=== PATIENT | female | born 1995 | race African-American/Black ===

== ENCOUNTER 2016-12-13 15:56 | Inpatient (IN) ==
[2016-12-13] MEDS ORDERED: ONDANSETRON 4 MG/2 ML VIAL IV STA (17:52)
[2016-12-13] MEDS ORDERED: HYDROmorphone 2 MG/1 ML VIAL IV STA (17:52)
[2016-12-13] MEDS ORDERED: SODIUM CHLORIDE 0.9% 1,000 ML IV STA (17:52)
[2016-12-13] MEDS ORDERED: HYDROmorphone 2 MG/1 ML VIAL ONE (17:59)
[2016-12-13] MEDS ORDERED: ONDANSETRON 4 MG/2 ML VIAL ONE (17:59)
[2016-12-13 18:01] LABS: Basophils # 0.1 10*3/uL (0.0-0.2); Basophils % 0.3 % (0.0-0.8); Hematocrit 40.9 VOL% (35.7-47.0); Hemoglobin 13.6 GM/DL (12.0-16.0); Immature Granulocytes % 1.5 %; Immature Granulocytes Absolute 0.45 #; Lymphocytes % 3.3 % (21.3-54.2); Mean Corpuscular HGB Conc 33.3 GM/DL (32-36); Mean Corpuscular Hemoglobin 28 PG (27-34); Mean Corpuscular Volume 84.5 FL (87-102); Mean Platelet Volume 11.7 FL (9.6-12.0); Monocytes # 2.4 10*3/uL (0.11-0.8); Monocytes % 7.8 % (1.7-12.7); Neutrophils # 26.6 10*3/uL (1.4-7.4); Neutrophils % 87.1 % (38.7-73.9); Platelet Count 222 T/CUMM (130-400); Red Blood Count 4.84 MC/CUMM (3.8-5.5); Red Cell Distribution Width 13.8 % (9.3-17.3); White Blood Count 30.6 T/CUMM (4-12)
[2016-12-13] MEDS ORDERED: PIPERACILLIN/TAZOBACTAM 3,375 MG in SODIUM CHLORIDE 0.9% 100 ML IV STA (18:12)
[2016-12-13 18:15] LABS: Apearance,Urine Slightly Hazy (Clear); Bacteria,Urine Occasional /HPF (Few); Blood, Urine Moderate mg/dL (Negative); Glucose,Urine (UA) Negative (Negative); Ketones,Urine 5 mg/dL (Negative); Mucus,Urine Few /LPF (Occasional); Nitrite,Urine Negative (Negative); Protein,Urine 100 MG/DL; RBC,Urine 9 /HPF (0-4); Squamous Epithelial Cell,Urine Occasional /HPF (0-10); Urine Color Amber (Yellow); Urine Specific Gravity 1.023 (1.001-1.035); WBC,Urine 3 /HPF (0-6)
[2016-12-13 18:16] LABS: Bilirubin,Urine Small mg/dL (Negative)
[2016-12-13 18:25] LABS: Albumin 3.1 G/DL (3.4-5.0); Bilirubin,Total 5.5 MG/DL (0.2-1.0); Calcium 8.7 MG/DL (8.5-10.1); Osmolality,Calculated 268.4 MOS/KG (273-304); Potassium 3.6 MMOL/L (3.5-5.1); Total Protein 7.8 G/DL (6.4-8.3)
[2016-12-13] MEDS ORDERED: PIPERACILLIN/TAZOBACTAM 3,375 MG VIAL IV ONE (18:29)
[2016-12-13 18:33] LABS: Amylase 15 U/L (25-115); Magnesium 2.3 MG/DL (1.8-2.4); Troponin I Only < 0.015 NG/ML (0.00-0.045)
[2016-12-13 18:36] LABS: Band Neutrophils 12 % (0-10); Lymphocytes 1 % (20-55); Segmented Neutrophils 79 % (50-85)
[2016-12-13 18:37] LABS: Platelet Estimate Adequate
[2016-12-13 18:38] LABS: Lactic Acid 1.8 MMOL/L (0.4-2.0)
[2016-12-13 18:38] LABS: Total Cells Counted 100
[2016-12-13] MEDS ORDERED: ALUMINUM/MAGNES/SIMETH MAX STR 30 ML UDCUP PO PRN (19:34)
[2016-12-13] MEDS ORDERED: ACETAMINOPHEN 325 MG TABLET PO PRN (19:34)
[2016-12-13] MEDS: DEXTROSE 5% NACL 0.9% 1,000 ML IV SCH (21:26)
[2016-12-13] MEDS: metroNIDAZOLE INJ 500 MG in PREMIX 1 EACH IV SCH (21:27)
[2016-12-13] MEDS: AZTREONAM 1,000 MG in SODIUM CHLORIDE 0.9% 50 ML IV SCH (21:28)
[2016-12-13] MEDS: HYDROmorphone 2 MG/1 ML VIAL IV PRN (21:31)
[2016-12-14] MEDS: HYDROmorphone 2 MG/1 ML VIAL IV PRN ×4 (00:23→20:22)
[2016-12-14] MEDS: DEXTROSE 5% NACL 0.9% 1,000 ML IV SCH ×5 (01:30→21:26)
[2016-12-14] MEDS: metroNIDAZOLE INJ 500 MG in PREMIX 1 EACH IV SCH ×4 (02:57→20:21)
[2016-12-14] MEDS: AZTREONAM 1,000 MG in SODIUM CHLORIDE 0.9% 50 ML IV SCH ×3 (04:35→21:25)
[2016-12-14] MEDS: PIPERACILLIN/TAZOBACTAM 3,375 MG in SODIUM CHLORIDE 0.9% 100 ML IV SCH ×3 (06:06→22:39)
[2016-12-14] MEDS ORDERED: BUPIVACAINE 0.25% 50 ML VIAL ONE (06:42)
[2016-12-14] MEDS ORDERED: LIDOCAINE 1%/EPI INJ 20 ML VIAL ONE (06:42)
[2016-12-14] MEDS ORDERED: TISSUE ADHESIVE 1 EACH APPLICATOR TOP ONE (06:42)
[2016-12-14] MEDS ORDERED: NEOSTIGMINE 10 MG/10 ML VIAL ONE (06:55)
[2016-12-14] MEDS ORDERED: LIDOCAINE 1% 5 ML VIAL ONE (06:55)
[2016-12-14] MEDS ORDERED: GLYCOPYRROLATE 0.4 MG/2 ML VIAL ONE (06:55)
[2016-12-14] MEDS ORDERED: PROPOFOL 200 MG/20 ML VIAL IV ONE (06:55)
[2016-12-14] MEDS ORDERED: DEXAMETHASONE 10 MG/1 ML VIAL ONE (06:55)
[2016-12-14] MEDS ORDERED: ONDANSETRON 4 MG/2 ML VIAL ONE (06:55)
[2016-12-14] MEDS ORDERED: PHENYLEPHRINE 1 MG/10 ML SYRINGE IV ONE (06:55)
[2016-12-14] MEDS ORDERED: ROCURONIUM 100 MG/10 ML VIAL IV ONE (06:55)
[2016-12-14 09:43] LABS: Apearance,Urine CLEAR (Clear); Bilirubin,Urine Small mg/dL (Negative); Blood, Urine Small mg/dL (Negative); Glucose,Urine (UA) Negative (Negative); Ketones,Urine Negative (Negative); Mucus,Urine Occasional /LPF (Occasional); Nitrite,Urine Negative (Negative); Protein,Urine 100 MG/DL; RBC,Urine 6 /HPF (0-4); Squamous Epithelial Cell,Urine Occasional /HPF (0-10); Urine Color Amber (Yellow); Urine Specific Gravity 1.019 (1.001-1.035); WBC,Urine 1 /HPF (0-6)
[2016-12-14] MEDS ORDERED: ACETAMINOPHEN 1,000 MG/100 ML VIAL IV ONE (10:06)
[2016-12-14] MEDS ORDERED: fentaNYL 100 MCG/2 ML VIAL ONE (10:06)
[2016-12-14] MEDS ORDERED: SEVOFLURANE 1 UNIT/15 MINUTE INH ONE (10:06)
[2016-12-14] MEDS ORDERED: MIDAZOLAM 2 MG/2 ML VIAL ONE (10:06)
[2016-12-14] MEDS ORDERED: LACTATED RINGERS 1,000 ML IV ONE (10:06)
[2016-12-14] MEDS ORDERED: ONDANSETRON 4 MG/2 ML VIAL IV PRN (10:15)
[2016-12-14] MEDS ORDERED: HYDROmorphone 2 MG/1 ML VIAL IV PRN (10:15)
[2016-12-14] MEDS ORDERED: LACTATED RINGERS 1,000 ML IV SCH (10:30)
[2016-12-14] MEDS: PANTOPRAZOLE 40 MG VIAL IV SCH (10:51)
[2016-12-14] MEDS: KETOROLAC 15 MG/1 ML VIAL IV SCH ×3 (11:05→21:22)
[2016-12-14 12:39] LABS: Hematocrit 37.3 VOL% (35.7-47.0); Hemoglobin 12.2 GM/DL (12.0-16.0)
[2016-12-15] MEDS: HYDROmorphone 2 MG/1 ML VIAL IV PRN ×4 (01:53→21:57)
[2016-12-15] MEDS: metroNIDAZOLE INJ 500 MG in PREMIX 1 EACH IV SCH ×2 (03:07→11:06)
[2016-12-15 03:49] LABS: Basophils # 0.1 10*3/uL (0.0-0.2); Basophils % 0.4 % (0.0-0.8); Hematocrit 34.7 VOL% (35.7-47.0); Hemoglobin 11.4 GM/DL (12.0-16.0); Immature Granulocytes % 3.1 %; Lymphocytes # 1.3 10*3/uL (1.4-4.0); Lymphocytes % 5.7 % (21.3-54.2); Mean Corpuscular HGB Conc 32.9 GM/DL (32-36); Mean Corpuscular Hemoglobin 28 PG (27-34); Mean Corpuscular Volume 84.2 FL (87-102); Mean Platelet Volume 12.3 FL (9.6-12.0); Monocytes # 1.7 10*3/uL (0.11-0.8); Monocytes % 7.6 % (1.7-12.7); Neutrophils # 18.7 10*3/uL (1.4-7.4); Neutrophils % 83.2 % (38.7-73.9); Platelet Count 222 T/CUMM (130-400); Red Blood Count 4.12 MC/CUMM (3.8-5.5); Red Cell Distribution Width 14.2 % (9.3-17.3); White Blood Count 22.4 T/CUMM (4-12)
[2016-12-15] MEDS: AZTREONAM 1,000 MG in SODIUM CHLORIDE 0.9% 50 ML IV SCH ×2 (04:12→12:17)
[2016-12-15] MEDS: KETOROLAC 15 MG/1 ML VIAL IV SCH ×3 (04:32→23:59)
[2016-12-15 04:36] LABS: Calcium 7.8 MG/DL (8.5-10.1); Osmolality,Calculated 277.7 MOS/KG (273-304); Potassium 3.8 MMOL/L (3.5-5.1)
[2016-12-15] MEDS: DEXTROSE 5% NACL 0.9% 1,000 ML IV SCH ×2 (04:49→15:31)
[2016-12-15 05:05] LABS: Band Neutrophils 6 % (0-10); Burr Cells Slight; Giant Platelets Few; Hypochromasia 1+; Lymphocytes 4 % (20-55); Ovalocytes Slight; Platelet Estimate Adequate; Segmented Neutrophils 81 % (50-85); Total Cells Counted 100
[2016-12-15] MEDS: PIPERACILLIN/TAZOBACTAM 3,375 MG in SODIUM CHLORIDE 0.9% 100 ML IV SCH ×2 (06:55→15:31)
[2016-12-15] MEDS: ENOXAPARIN 40 MG/0.4 ML SYRINGE SUBCUT SCH (10:21)
[2016-12-15] MEDS: PANTOPRAZOLE 40 MG VIAL IV SCH (10:27)
[2016-12-16] MEDS: KETOROLAC 15 MG/1 ML VIAL IV SCH ×5 (00:28→22:22)
[2016-12-16] MEDS: metroNIDAZOLE INJ 500 MG in PREMIX 1 EACH IV SCH ×5 (00:30→23:34)
[2016-12-16] MEDS: DEXTROSE 5% NACL 0.9% 1,000 ML IV SCH ×2 (00:35→05:39)
[2016-12-16] MEDS: AZTREONAM 1,000 MG in SODIUM CHLORIDE 0.9% 50 ML IV SCH ×3 (01:54→18:58)
[2016-12-16] MEDS: PIPERACILLIN/TAZOBACTAM 3,375 MG in SODIUM CHLORIDE 0.9% 100 ML IV SCH ×3 (02:59→19:37)
[2016-12-16 05:01] LABS: Basophils # 0.2 10*3/uL (0.0-0.2); Basophils % 0.6 % (0.0-0.8); Hematocrit 33.3 VOL% (35.7-47.0); Hemoglobin 11.1 GM/DL (12.0-16.0); Immature Granulocytes % 9.3 %; Immature Granulocytes Absolute 3.03 #; Mean Corpuscular HGB Conc 33.3 GM/DL (32-36); Mean Corpuscular Hemoglobin 28 PG (27-34); Mean Corpuscular Volume 82.6 FL (87-102); Mean Platelet Volume 11.5 FL (9.6-12.0); Monocytes # 3.2 10*3/uL (0.11-0.8); Monocytes % 9.9 % (1.7-12.7); Neutrophils # 23.3 10*3/uL (1.4-7.4); Neutrophils % 71.2 % (38.7-73.9); Platelet Count 273 T/CUMM (130-400); Red Blood Count 4.03 MC/CUMM (3.8-5.5); Red Cell Distribution Width 14.4 % (9.3-17.3); White Blood Count 32.8 T/CUMM (4-12)
[2016-12-16 05:39] LABS: Albumin 1.9 G/DL (3.4-5.0); Bilirubin,Total 2.6 MG/DL (0.2-1.0); Calcium 7.4 MG/DL (8.5-10.1); Osmolality,Calculated 280.5 MOS/KG (273-304); Potassium 3.4 MMOL/L (3.5-5.1); Total Protein 5.7 G/DL (6.4-8.3)
[2016-12-16 05:49] LABS: Band Neutrophils 5 % (0-10); Lymphocytes 10 % (20-55); Segmented Neutrophils 75 % (50-85); Total Cells Counted 100
[2016-12-16 05:50] LABS: Platelet Estimate Normal
[2016-12-16] MEDS: PANTOPRAZOLE 40 MG VIAL IV SCH (10:19)
[2016-12-16] MEDS: ENOXAPARIN 40 MG/0.4 ML SYRINGE SUBCUT SCH (10:24)
[2016-12-16] MEDS: HYDROmorphone 2 MG/1 ML VIAL IV PRN ×2 (14:18→22:17)
[2016-12-17] MEDS: AZTREONAM 1,000 MG in SODIUM CHLORIDE 0.9% 50 ML IV SCH ×3 (01:18→16:21)
[2016-12-17] MEDS: PIPERACILLIN/TAZOBACTAM 3,375 MG in SODIUM CHLORIDE 0.9% 100 ML IV SCH ×3 (03:00→18:21)
[2016-12-17] MEDS: KETOROLAC 15 MG/1 ML VIAL IV SCH (03:20)
[2016-12-17 05:35] LABS: Basophils % 0.1 % (0.0-0.8); Eosinophils % 0.1 % (0.00-10.9); Hematocrit 34.7 VOL% (35.7-47.0); Hemoglobin 11.7 GM/DL (12.0-16.0); Immature Granulocytes % 18.6 %; Immature Granulocytes Absolute 5.02 #; Lymphocytes # 5.3 10*3/uL (1.4-4.0); Lymphocytes % 19.6 % (21.3-54.2); Mean Corpuscular HGB Conc 33.7 GM/DL (32-36); Mean Corpuscular Hemoglobin 28 PG (27-34); Mean Corpuscular Volume 82.6 FL (87-102); Mean Platelet Volume 11.6 FL (9.6-12.0); Monocytes # 2.4 10*3/uL (0.11-0.8); Neutrophils # 14.2 10*3/uL (1.4-7.4); Neutrophils % 52.6 % (38.7-73.9); Platelet Count 311 T/CUMM (130-400); Red Cell Distribution Width 14.9 % (9.3-17.3)
[2016-12-17 05:58] LABS: Calcium 7.6 MG/DL (8.5-10.1); Osmolality,Calculated 278.5 MOS/KG (273-304); Potassium 3.1 MMOL/L (3.5-5.1)
[2016-12-17 06:09] LABS: Band Neutrophils 5 % (0-10); Hypochromasia 1+; Lymphocytes 23 % (20-55); Metamyelocytes 2 %; Myelocytes 2 %; Platelet Estimate Adequate; Segmented Neutrophils 53 % (50-85); Total Cells Counted 100
[2016-12-17 06:10] LABS: Giant Platelets Few; Ovalocytes Slight
[2016-12-17] MEDS: metroNIDAZOLE INJ 500 MG in PREMIX 1 EACH IV SCH ×4 (06:41→23:02)
[2016-12-17] MEDS: POTASSIUM CHLORIDE INJ 30 MEQ in DEXTROSE 5% NACL 0.9% 1,000 ML IV SCH ×2 (08:18→23:07)
[2016-12-17] MEDS: PANTOPRAZOLE 40 MG VIAL IV SCH (08:19)
[2016-12-17] MEDS: ENOXAPARIN 40 MG/0.4 ML SYRINGE SUBCUT SCH (08:32)
[2016-12-17] MEDS: HYDROmorphone 2 MG/1 ML VIAL IV PRN ×4 (09:33→23:59)
[2016-12-18] MEDS: PIPERACILLIN/TAZOBACTAM 3,375 MG in SODIUM CHLORIDE 0.9% 100 ML IV SCH ×3 (01:17→18:20)
[2016-12-18] MEDS: HYDROmorphone 2 MG/1 ML VIAL IV PRN ×6 (03:10→20:34)
[2016-12-18 03:25] LABS: Basophils % 0.1 % (0.0-0.8); Eosinophils # 0.1 10*3/uL (0.0-0.87); Eosinophils % 0.2 % (0.00-10.9); Hematocrit 33.6 VOL% (35.7-47.0); Hemoglobin 11.3 GM/DL (12.0-16.0); Immature Granulocytes % 21.7 %; Lymphocytes # 5.3 10*3/uL (1.4-4.0); Lymphocytes % 14.7 % (21.3-54.2); Mean Corpuscular HGB Conc 33.6 GM/DL (32-36); Mean Corpuscular Hemoglobin 28 PG (27-34); Mean Corpuscular Volume 82.4 FL (87-102); Mean Platelet Volume 10.8 FL (9.6-12.0); Monocytes # 2.8 10*3/uL (0.11-0.8); Monocytes % 7.9 % (1.7-12.7); NRBC # 0.02 10*3/uL; Neutrophils # 19.9 10*3/uL (1.4-7.4); Neutrophils % 55.4 % (38.7-73.9); Platelet Count 299 T/CUMM (130-400); Red Blood Count 4.08 MC/CUMM (3.8-5.5); Red Cell Distribution Width 14.6 % (9.3-17.3); White Blood Count 35.9 T/CUMM (4-12)
[2016-12-18 05:21] LABS: Atypical Lymphocytes Moderate; Band Neutrophils 10 % (0-10); Lymphocytes 22 % (20-55); Metamyelocytes 5 %; Myelocytes 10 %; Platelet Estimate Normal; Promyelocytes 3 %; Segmented Neutrophils 38 % (50-85); Total Cells Counted 100
[2016-12-18] MEDS: metroNIDAZOLE INJ 500 MG in PREMIX 1 EACH IV SCH ×4 (05:59→23:09)
[2016-12-18] MEDS: ENOXAPARIN 40 MG/0.4 ML SYRINGE SUBCUT SCH (09:13)
[2016-12-18] MEDS: PANTOPRAZOLE 40 MG VIAL IV SCH (09:13)
[2016-12-18] MEDS: AZTREONAM 1,000 MG in SODIUM CHLORIDE 0.9% 50 ML IV SCH ×3 (09:16→16:49)
[2016-12-18] MEDS: ONDANSETRON 4 MG/2 ML VIAL IV PRN (17:27)
[2016-12-18] MEDS: POTASSIUM CHLORIDE INJ 30 MEQ in DEXTROSE 5% NACL 0.9% 1,000 ML IV SCH (21:53)
[2016-12-19] MEDS: AZTREONAM 1,000 MG in SODIUM CHLORIDE 0.9% 50 ML IV SCH ×3 (00:33→16:10)
[2016-12-19] MEDS: HYDROmorphone 2 MG/1 ML VIAL IV PRN ×7 (00:33→23:29)
[2016-12-19] MEDS: PIPERACILLIN/TAZOBACTAM 3,375 MG in SODIUM CHLORIDE 0.9% 100 ML IV SCH ×3 (01:17→18:45)
[2016-12-19] MEDS: metroNIDAZOLE INJ 500 MG in PREMIX 1 EACH IV SCH ×4 (05:52→23:13)
[2016-12-19 06:25] LABS: Basophils % 0.1 % (0.0-0.8); Eosinophils # 0.2 10*3/uL (0.0-0.87); Eosinophils % 0.4 % (0.00-10.9); Hematocrit 32.4 VOL% (35.7-47.0); Hemoglobin 10.8 GM/DL (12.0-16.0); Immature Granulocytes % 20.6 %; Immature Granulocytes Absolute 7.65 #; Lymphocytes # 3.9 10*3/uL (1.4-4.0); Lymphocytes % 10.4 % (21.3-54.2); Mean Corpuscular HGB Conc 33.3 GM/DL (32-36); Mean Corpuscular Hemoglobin 28 PG (27-34); Mean Corpuscular Volume 82.4 FL (87-102); Mean Platelet Volume 10.8 FL (9.6-12.0); Monocytes # 2.1 10*3/uL (0.11-0.8); Monocytes % 5.8 % (1.7-12.7); Neutrophils # 23.3 10*3/uL (1.4-7.4); Neutrophils % 62.7 % (38.7-73.9); Platelet Count 315 T/CUMM (130-400); Red Blood Count 3.93 MC/CUMM (3.8-5.5); Red Cell Distribution Width 14.7 % (9.3-17.3); White Blood Count 37.1 T/CUMM (4-12)
[2016-12-19 07:54] LABS: Band Neutrophils 8 % (0-10); Hypochromasia 2+; Lymphocytes 9 % (20-55); Microcytosis 1+; Platelet Estimate Adequate; Segmented Neutrophils 71 % (50-85); Total Cells Counted 100
[2016-12-19] MEDS: PANTOPRAZOLE 40 MG VIAL IV SCH (09:24)
[2016-12-19] MEDS: ONDANSETRON 4 MG/2 ML VIAL IV PRN ×2 (09:27→12:54)
[2016-12-19] MEDS: ENOXAPARIN 40 MG/0.4 ML SYRINGE SUBCUT SCH (09:30)
[2016-12-19 11:06] LABS: Calcium 7.6 MG/DL (8.5-10.1); Osmolality,Calculated 273.5 MOS/KG (273-304); Potassium 3.4 MMOL/L (3.5-5.1)
[2016-12-19] MEDS: POTASSIUM CHLORIDE INJ 30 MEQ in DEXTROSE 5% NACL 0.9% 1,000 ML IV SCH (15:38)
[2016-12-19] MEDS: POTASSIUM CHLORIDE 20 MEQ TABLET PO PRN ×3 (15:39→18:20)
[2016-12-20] MEDS: AZTREONAM 1,000 MG in SODIUM CHLORIDE 0.9% 50 ML IV SCH ×3 (00:47→16:55)
[2016-12-20] MEDS: PIPERACILLIN/TAZOBACTAM 3,375 MG in SODIUM CHLORIDE 0.9% 100 ML IV SCH ×3 (01:47→17:20)
[2016-12-20] MEDS: HYDROmorphone 2 MG/1 ML VIAL IV PRN ×7 (03:35→22:12)
[2016-12-20 05:33] LABS: Basophils # 0.1 10*3/uL (0.0-0.2); Basophils % 0.4 % (0.0-0.8); Eosinophils # 0.1 10*3/uL (0.0-0.87); Eosinophils % 0.4 % (0.00-10.9); Hemoglobin 10.8 GM/DL (12.0-16.0); Immature Granulocytes % 13.1 %; Immature Granulocytes Absolute 3.88 #; Lymphocytes # 2.9 10*3/uL (1.4-4.0); Lymphocytes % 9.8 % (21.3-54.2); Mean Corpuscular HGB Conc 32.7 GM/DL (32-36); Mean Corpuscular Hemoglobin 27 PG (27-34); Mean Corpuscular Volume 83.1 FL (87-102); Mean Platelet Volume 10.1 FL (9.6-12.0); Monocytes # 1.8 10*3/uL (0.11-0.8); Monocytes % 6.1 % (1.7-12.7); Neutrophils # 20.7 10*3/uL (1.4-7.4); Neutrophils % 70.2 % (38.7-73.9); Platelet Count 346 T/CUMM (130-400); Red Blood Count 3.97 MC/CUMM (3.8-5.5); Red Cell Distribution Width 14.8 % (9.3-17.3); White Blood Count 29.5 T/CUMM (4-12)
[2016-12-20 05:57] LABS: Lymphocytes 5 % (20-55); Platelet Estimate Adequate; Segmented Neutrophils 91 % (50-85); Total Cells Counted 100
[2016-12-20 05:58] LABS: Giant Platelets Few; Hypochromasia 1+; Microcytosis 1+; Ovalocytes Slight
[2016-12-20 06:05] LABS: Calcium 7.7 MG/DL (8.5-10.1); Osmolality,Calculated 273.5 MOS/KG (273-304); Potassium 3.7 MMOL/L (3.5-5.1)
[2016-12-20] MEDS: metroNIDAZOLE INJ 500 MG in PREMIX 1 EACH IV SCH ×3 (06:25→20:38)
[2016-12-20] MEDS: POTASSIUM CHLORIDE INJ 30 MEQ in DEXTROSE 5% NACL 0.9% 1,000 ML IV SCH (07:38)
[2016-12-20] MEDS: ENOXAPARIN 40 MG/0.4 ML SYRINGE SUBCUT SCH (08:24)
[2016-12-20] MEDS: PANTOPRAZOLE 40 MG VIAL IV SCH (08:49)
[2016-12-20] MEDS ORDERED: DIAZEPAM 5 MG TABLET PO ONE (12:33)
[2016-12-20] MEDS ORDERED: MIDAZOLAM 2 MG/2 ML VIAL IV ONE (12:33)
[2016-12-20] MEDS ORDERED: fentaNYL 100 MCG/2 ML VIAL IV ONE (12:33)
[2016-12-20] MEDS ORDERED: fentaNYL 100 MCG/2 ML VIAL ONE (15:03)
[2016-12-20] MEDS ORDERED: MIDAZOLAM 2 MG/2 ML VIAL ONE (15:03)
[2016-12-21] MEDS: AZTREONAM 1,000 MG in SODIUM CHLORIDE 0.9% 50 ML IV SCH ×3 (01:24→17:15)
[2016-12-21] MEDS: HYDROmorphone 2 MG/1 ML VIAL IV PRN ×7 (02:02→23:19)
[2016-12-21] MEDS: PIPERACILLIN/TAZOBACTAM 3,375 MG in SODIUM CHLORIDE 0.9% 100 ML IV SCH ×3 (02:04→17:45)
[2016-12-21] MEDS: metroNIDAZOLE INJ 500 MG in PREMIX 1 EACH IV SCH ×3 (06:08→22:53)
[2016-12-21] MEDS: POTASSIUM CHLORIDE INJ 30 MEQ in DEXTROSE 5% NACL 0.9% 1,000 ML IV SCH ×2 (07:52→11:30)
[2016-12-21] MEDS ORDERED: MAGNESIUM CITRATE 300 ML BOTTLE PO ONE (08:05)
[2016-12-21] MEDS: PANTOPRAZOLE 40 MG VIAL IV SCH (08:28)
[2016-12-21 08:34] LABS: Basophils # 0.1 10*3/uL (0.0-0.2); Basophils % 0.5 % (0.0-0.8); Eosinophils # 0.1 10*3/uL (0.0-0.87); Eosinophils % 0.5 % (0.00-10.9); Hematocrit 34.7 VOL% (35.7-47.0); Hemoglobin 11.4 GM/DL (12.0-16.0); Immature Granulocytes % 7.3 %; Immature Granulocytes Absolute 1.64 #; Lymphocytes # 2.7 10*3/uL (1.4-4.0); Mean Corpuscular HGB Conc 32.9 GM/DL (32-36); Mean Corpuscular Hemoglobin 28 PG (27-34); Mean Platelet Volume 10.2 FL (9.6-12.0); Monocytes # 1.2 10*3/uL (0.11-0.8); Monocytes % 5.5 % (1.7-12.7); Neutrophils # 16.6 10*3/uL (1.4-7.4); Neutrophils % 74.2 % (38.7-73.9); Platelet Count 358 T/CUMM (130-400); Red Blood Count 4.13 MC/CUMM (3.8-5.5); Red Cell Distribution Width 15.6 % (9.3-17.3); White Blood Count 22.4 T/CUMM (4-12)
[2016-12-21 08:55] LABS: Band Neutrophils 2 % (0-10); Eosinophils 1 % (0-10); Giant Platelets Few; Hypochromasia 1+; Lymphocytes 5 % (20-55); Ovalocytes Slight; Platelet Estimate Adequate; Segmented Neutrophils 89 % (50-85); Total Cells Counted 100
[2016-12-21 08:56] LABS: Microcytosis 1+
[2016-12-21 09:08] LABS: Calcium 8.3 MG/DL (8.5-10.1); Magnesium 1.7 MG/DL (1.8-2.4); Osmolality,Calculated 270.8 MOS/KG (273-304); Potassium 4.1 MMOL/L (3.5-5.1)
[2016-12-21] MEDS: ALVIMOPAN 12 MG CAPSULE PO SCH ×3 (09:16→20:20)
[2016-12-21] MEDS ORDERED: DIAZEPAM 5 MG TABLET PO ONE (13:05)
[2016-12-22] MEDS: AZTREONAM 1,000 MG in SODIUM CHLORIDE 0.9% 50 ML IV SCH ×3 (00:35→17:44)
[2016-12-22] MEDS: PIPERACILLIN/TAZOBACTAM 3,375 MG in SODIUM CHLORIDE 0.9% 100 ML IV SCH ×3 (01:32→18:22)
[2016-12-22] MEDS: POTASSIUM CHLORIDE INJ 30 MEQ in DEXTROSE 5% NACL 0.9% 1,000 ML IV SCH ×5 (01:33→19:47)
[2016-12-22] MEDS: HYDROmorphone 2 MG/1 ML VIAL IV PRN ×9 (01:53→22:54)
[2016-12-22] MEDS: metroNIDAZOLE INJ 500 MG in PREMIX 1 EACH IV SCH ×4 (05:25→22:57)
[2016-12-22 05:49] LABS: Basophils # 0.1 10*3/uL (0.0-0.2); Basophils % 0.4 % (0.0-0.8); Eosinophils # 0.1 10*3/uL (0.0-0.87); Eosinophils % 0.5 % (0.00-10.9); Hematocrit 36.9 VOL% (35.7-47.0); Hemoglobin 12.2 GM/DL (12.0-16.0); Immature Granulocytes % 5.6 %; Immature Granulocytes Absolute 1.14 #; Lymphocytes # 2.3 10*3/uL (1.4-4.0); Lymphocytes % 11.5 % (21.3-54.2); Mean Corpuscular HGB Conc 33.1 GM/DL (32-36); Mean Corpuscular Hemoglobin 28 PG (27-34); Mean Corpuscular Volume 84.8 FL (87-102); Mean Platelet Volume 11.3 FL (9.6-12.0); Neutrophils # 15.6 10*3/uL (1.4-7.4); Platelet Count 343 T/CUMM (130-400); Red Blood Count 4.35 MC/CUMM (3.8-5.5); Red Cell Distribution Width 15.8 % (9.3-17.3); White Blood Count 20.3 T/CUMM (4-12)
[2016-12-22] MEDS ORDERED: DIAZEPAM 5 MG TABLET PO ONE (06:00)
[2016-12-22] MEDS ORDERED: FAMOTIDINE 20 MG TABLET PO ONE (06:00)
[2016-12-22 06:19] LABS: Band Neutrophils 1 % (0-10); Giant Platelets Few; Hypochromasia 1+; Lymphocytes 7 % (20-55); Macrocytosis Slight; Platelet Estimate Adequate; Polychromasia Slight; Segmented Neutrophils 86 % (50-85); Total Cells Counted 100
[2016-12-22] MEDS ORDERED: LIDOCAINE 1%/EPI INJ 20 ML VIAL ONE (06:41)
[2016-12-22] MEDS ORDERED: BUPIVACAINE 0.25% 50 ML VIAL ONE (06:41)
[2016-12-22] MEDS: ALVIMOPAN 12 MG CAPSULE PO SCH ×2 (07:15→20:15)
[2016-12-22] MEDS: PANTOPRAZOLE 40 MG VIAL IV SCH (09:00)
[2016-12-22] MEDS: KETOROLAC 15 MG/1 ML VIAL IV SCH ×3 (09:30→20:30)
[2016-12-22] MEDS ORDERED: PROPOFOL 200 MG/20 ML VIAL IV ONE (09:38)
[2016-12-22] MEDS ORDERED: KETOROLAC 30 MG/1 ML VIAL ONE (09:39)
[2016-12-22] MEDS ORDERED: SEVOFLURANE 1 UNIT/15 MINUTE INH ONE (09:39)
[2016-12-22] MEDS ORDERED: GLYCOPYRROLATE 0.4 MG/2 ML VIAL ONE (09:39)
[2016-12-22] MEDS ORDERED: fentaNYL 100 MCG/2 ML VIAL ONE (09:39)
[2016-12-22] MEDS ORDERED: ESMOLOL 100 MG/10 ML VIAL IV ONE (09:39)
[2016-12-22] MEDS ORDERED: MIDAZOLAM 2 MG/2 ML VIAL ONE (09:39)
[2016-12-22] MEDS ORDERED: NEOSTIGMINE 10 MG/10 ML VIAL ONE (09:39)
[2016-12-22] MEDS ORDERED: ACETAMINOPHEN 1,000 MG/100 ML VIAL IV ONE (09:40)
[2016-12-22] MEDS ORDERED: SUCCINYLCHOLINE 200 MG/10 ML VIAL ONE (09:40)
[2016-12-22] MEDS ORDERED: ROCURONIUM 100 MG/10 ML VIAL IV ONE (09:40)
[2016-12-22] MEDS ORDERED: ONDANSETRON 4 MG/2 ML VIAL ONE ×2 (09:42→10:34)
[2016-12-22] MEDS ORDERED: HYDROmorphone 2 MG/1 ML VIAL ONE ×2 (10:34→11:22)
[2016-12-22] MEDS ORDERED: ONDANSETRON 4 MG/2 ML VIAL IV PRN (10:39)
[2016-12-22] MEDS ORDERED: HYDROmorphone 2 MG/1 ML VIAL IV ONE (11:24)
[2016-12-22 16:03] LABS: Apearance,Urine Slightly Hazy (Clear); Bilirubin,Urine Negative (Negative); Blood, Urine Negative (Negative); Glucose,Urine (UA) Negative (Negative); Ketones,Urine 20 mg/dL (Negative); Mucus,Urine Occasional /LPF (Occasional); Nitrite,Urine Negative (Negative); Protein,Urine Negative; RBC,Urine 2 /HPF (0-4); Squamous Epithelial Cell,Urine Occasional /HPF (0-10); Urine Color Yellow (Yellow); Urine Urobilinogen < 2.0 EU/DL (0.2-1.0); WBC,Urine 1 /HPF (0-6)
[2016-12-22] MEDS: ONDANSETRON 4 MG/2 ML VIAL IV PRN (18:27)
[2016-12-22] MEDS: DOCUSATE SODIUM 100 MG CAPSULE PO SCH (20:15)
[2016-12-23] MEDS: AZTREONAM 1,000 MG in SODIUM CHLORIDE 0.9% 50 ML IV SCH ×3 (01:49→17:55)
[2016-12-23] MEDS: HYDROmorphone 2 MG/1 ML VIAL IV PRN ×6 (02:12→23:27)
[2016-12-23] MEDS: KETOROLAC 15 MG/1 ML VIAL IV SCH ×4 (03:52→20:48)
[2016-12-23] MEDS: metroNIDAZOLE INJ 500 MG in PREMIX 1 EACH IV SCH ×3 (03:57→15:10)
[2016-12-23] MEDS: PIPERACILLIN/TAZOBACTAM 3,375 MG in SODIUM CHLORIDE 0.9% 100 ML IV SCH ×3 (04:29→20:51)
[2016-12-23 05:08] LABS: Basophils # 0.1 10*3/uL (0.0-0.2); Basophils % 0.3 % (0.0-0.8); Eosinophils # 0.1 10*3/uL (0.0-0.87); Eosinophils % 0.7 % (0.00-10.9); Hematocrit 33.9 VOL% (35.7-47.0); Hemoglobin 11.1 GM/DL (12.0-16.0); Immature Granulocytes % 4.4 %; Immature Granulocytes Absolute 0.71 #; Lymphocytes # 1.7 10*3/uL (1.4-4.0); Lymphocytes % 10.2 % (21.3-54.2); Mean Corpuscular HGB Conc 32.7 GM/DL (32-36); Mean Corpuscular Hemoglobin 28 PG (27-34); Mean Corpuscular Volume 84.8 FL (87-102); Mean Platelet Volume 10.7 FL (9.6-12.0); Monocytes # 1.2 10*3/uL (0.11-0.8); Monocytes % 7.1 % (1.7-12.7); Neutrophils # 12.6 10*3/uL (1.4-7.4); Neutrophils % 77.3 % (38.7-73.9); Platelet Count 351 T/CUMM (130-400); Red Cell Distribution Width 15.8 % (9.3-17.3); White Blood Count 16.3 T/CUMM (4-12)
[2016-12-23] MEDS: POTASSIUM CHLORIDE INJ 30 MEQ in DEXTROSE 5% NACL 0.9% 1,000 ML IV SCH ×2 (05:24→23:17)
[2016-12-23 05:40] LABS: Calcium 7.8 MG/DL (8.5-10.1); Osmolality,Calculated 268.8 MOS/KG (273-304); Potassium 4.3 MMOL/L (3.5-5.1)
[2016-12-23 05:42] LABS: Band Neutrophils 2 % (0-10); Eosinophils 1 % (0-10); Hypochromasia 1+; Lymphocytes 9 % (20-55); Microcytosis 1+; Myelocytes 1 %; Segmented Neutrophils 83 % (50-85); Total Cells Counted 100
[2016-12-23] MEDS: ALVIMOPAN 12 MG CAPSULE PO SCH ×2 (09:01→20:47)
[2016-12-23] MEDS: DOCUSATE SODIUM 100 MG CAPSULE PO SCH ×2 (09:01→20:47)
[2016-12-23] MEDS: ENOXAPARIN 40 MG/0.4 ML SYRINGE SUBCUT SCH (09:01)
[2016-12-23] MEDS: PANTOPRAZOLE 40 MG TABLET PO SCH (09:01)
[2016-12-23] MEDS: ONDANSETRON 4 MG/2 ML VIAL IV PRN ×2 (18:37→23:23)
[2016-12-24] MEDS: metroNIDAZOLE INJ 500 MG in PREMIX 1 EACH IV SCH ×4 (01:17→22:59)
[2016-12-24] MEDS: HYDROmorphone 2 MG/1 ML VIAL IV PRN ×5 (02:38→23:02)
[2016-12-24] MEDS: POTASSIUM CHLORIDE INJ 30 MEQ in DEXTROSE 5% NACL 0.9% 1,000 ML IV SCH (02:39)
[2016-12-24] MEDS: AZTREONAM 1,000 MG in SODIUM CHLORIDE 0.9% 50 ML IV SCH (02:41)
[2016-12-24] MEDS: KETOROLAC 15 MG/1 ML VIAL IV SCH ×4 (03:55→22:59)
[2016-12-24] MEDS: PIPERACILLIN/TAZOBACTAM 3,375 MG in SODIUM CHLORIDE 0.9% 100 ML IV SCH ×2 (04:01→12:47)
[2016-12-24 06:30] LABS: Basophils % 0.3 % (0.0-0.8); Eosinophils # 0.1 10*3/uL (0.0-0.87); Hematocrit 32.5 VOL% (35.7-47.0); Hemoglobin 10.7 GM/DL (12.0-16.0); Immature Granulocytes % 2.5 %; Immature Granulocytes Absolute 0.31 #; Lymphocytes % 16.4 % (21.3-54.2); Mean Corpuscular HGB Conc 32.9 GM/DL (32-36); Mean Corpuscular Hemoglobin 28 PG (27-34); Mean Corpuscular Volume 84.2 FL (87-102); Mean Platelet Volume 10.7 FL (9.6-12.0); Monocytes # 0.9 10*3/uL (0.11-0.8); Monocytes % 7.5 % (1.7-12.7); Neutrophils % 72.3 % (38.7-73.9); Platelet Count 317 T/CUMM (130-400); Red Blood Count 3.86 MC/CUMM (3.8-5.5); Red Cell Distribution Width 15.6 % (9.3-17.3); White Blood Count 12.5 T/CUMM (4-12)
[2016-12-24 07:08] LABS: Calcium 8.3 MG/DL (8.5-10.1); Magnesium 1.8 MG/DL (1.8-2.4); Osmolality,Calculated 272.5 MOS/KG (273-304); Potassium 4.3 MMOL/L (3.5-5.1)
[2016-12-24] MEDS: ONDANSETRON 4 MG/2 ML VIAL IV PRN ×2 (08:01→17:35)
[2016-12-24] MEDS: AZTREONAM 1,000 MG in SYRINGE 1 EACH IV SCH ×2 (11:53→22:56)
[2016-12-24] MEDS: ENOXAPARIN 40 MG/0.4 ML SYRINGE SUBCUT SCH (11:54)
[2016-12-24] MEDS: PANTOPRAZOLE 40 MG TABLET PO SCH (11:54)
[2016-12-24] MEDS: DOCUSATE SODIUM 100 MG CAPSULE PO SCH ×2 (11:56→21:16)
[2016-12-24] MEDS: ALVIMOPAN 12 MG CAPSULE PO SCH ×2 (11:56→21:16)
[2016-12-25] MEDS: PIPERACILLIN/TAZOBACTAM 3,375 MG in SODIUM CHLORIDE 0.9% 100 ML IV SCH ×4 (00:15→19:30)
[2016-12-25] MEDS: AZTREONAM 1,000 MG in SYRINGE 1 EACH IV SCH ×3 (03:22→17:41)
[2016-12-25] MEDS: HYDROmorphone 2 MG/1 ML VIAL IV PRN ×5 (03:22→20:21)
[2016-12-25] MEDS: metroNIDAZOLE INJ 500 MG in PREMIX 1 EACH IV SCH ×4 (04:17→23:56)
[2016-12-25] MEDS: KETOROLAC 15 MG/1 ML VIAL IV SCH (04:20)
[2016-12-25] MEDS: ENOXAPARIN 40 MG/0.4 ML SYRINGE SUBCUT SCH (09:48)
[2016-12-25] MEDS: ALVIMOPAN 12 MG CAPSULE PO SCH ×2 (09:52→20:26)
[2016-12-25] MEDS: DOCUSATE SODIUM 100 MG CAPSULE PO SCH ×2 (09:52→20:27)
[2016-12-25] MEDS: PANTOPRAZOLE 40 MG TABLET PO SCH (09:54)
[2016-12-25] MEDS ORDERED: FLUCONAZOLE 150 MG TABLET PO ONE (10:25)
[2016-12-26] MEDS: ONDANSETRON 4 MG/2 ML VIAL IV PRN ×2 (01:54→16:02)
[2016-12-26] MEDS: HYDROmorphone 2 MG/1 ML VIAL IV PRN ×4 (01:55→21:59)
[2016-12-26] MEDS: AZTREONAM 1,000 MG in SYRINGE 1 EACH IV SCH ×3 (01:59→19:27)
[2016-12-26] MEDS: metroNIDAZOLE INJ 500 MG in PREMIX 1 EACH IV SCH ×4 (02:53→22:03)
[2016-12-26] MEDS: PIPERACILLIN/TAZOBACTAM 3,375 MG in SODIUM CHLORIDE 0.9% 100 ML IV SCH ×3 (03:57→19:31)
[2016-12-26 05:14] LABS: Basophils # 0.1 10*3/uL (0.0-0.2); Basophils % 0.5 % (0.0-0.8); Eosinophils # 0.1 10*3/uL (0.0-0.87); Hematocrit 35.1 VOL% (35.7-47.0); Hemoglobin 11.4 GM/DL (12.0-16.0); Immature Granulocytes Absolute 0.11 #; Lymphocytes # 1.9 10*3/uL (1.4-4.0); Lymphocytes % 17.7 % (21.3-54.2); Mean Corpuscular HGB Conc 32.5 GM/DL (32-36); Mean Corpuscular Hemoglobin 28 PG (27-34); Mean Corpuscular Volume 85.4 FL (87-102); Mean Platelet Volume 10.6 FL (9.6-12.0); Monocytes # 0.7 10*3/uL (0.11-0.8); Monocytes % 6.6 % (1.7-12.7); Neutrophils # 7.8 10*3/uL (1.4-7.4); Neutrophils % 73.2 % (38.7-73.9); Platelet Count 400 T/CUMM (130-400); Red Blood Count 4.11 MC/CUMM (3.8-5.5); Red Cell Distribution Width 15.8 % (9.3-17.3); White Blood Count 10.7 T/CUMM (4-12)
[2016-12-26 05:48] LABS: Calcium 8.8 MG/DL (8.5-10.1); Magnesium 1.9 MG/DL (1.8-2.4); Osmolality,Calculated 275.4 MOS/KG (273-304); Potassium 3.8 MMOL/L (3.5-5.1)
[2016-12-26] MEDS: ENOXAPARIN 40 MG/0.4 ML SYRINGE SUBCUT SCH (12:29)
[2016-12-26] MEDS: ALVIMOPAN 12 MG CAPSULE PO SCH ×2 (12:33→22:05)
[2016-12-26] MEDS: DOCUSATE SODIUM 100 MG CAPSULE PO SCH ×2 (12:33→21:56)
[2016-12-26] MEDS: PANTOPRAZOLE 40 MG TABLET PO SCH (12:35)
[2016-12-27] MEDS: metroNIDAZOLE INJ 500 MG in PREMIX 1 EACH IV SCH ×2 (02:47→09:02)
[2016-12-27] MEDS: AZTREONAM 1,000 MG in SYRINGE 1 EACH IV SCH ×2 (02:48→10:12)
[2016-12-27] MEDS: PIPERACILLIN/TAZOBACTAM 3,375 MG in SODIUM CHLORIDE 0.9% 100 ML IV SCH ×2 (03:55→13:32)
[2016-12-27] MEDS: HYDROmorphone 2 MG/1 ML VIAL IV PRN ×2 (04:02→08:44)
[2016-12-27 06:50] VITALS: BP 134/82
[2016-12-27] MEDS: ALVIMOPAN 12 MG CAPSULE PO SCH (09:01)
[2016-12-27] MEDS: ENOXAPARIN 40 MG/0.4 ML SYRINGE SUBCUT SCH (09:01)
[2016-12-27] MEDS: PANTOPRAZOLE 40 MG TABLET PO SCH (09:01)
[2016-12-27] MEDS: DOCUSATE SODIUM 100 MG CAPSULE PO SCH (09:01)
== END 2016-12-27 13:35 | disposition home or self-care (01) | DRG 339 ==
LOC: N.ED 15:56 → N.EDINP 19:34 → N.3E 20:21
PROVIDERS: ADMIT Specialist; ATTEND Specialist

== ENCOUNTER 2018-08-07 21:11 | Inpatient (IN) ==
[2018-08-07] MEDS ORDERED: LACTATED RINGERS 500 ML IV PRN (21:31)
[2018-08-07] MEDS ORDERED: MEPERIDINE 50 MG/1 ML VIAL IV PRN (21:31)
[2018-08-07] MEDS ORDERED: ONDANSETRON 4 MG/2 ML VIAL IV PRN (21:31)
[2018-08-07 21:59] LABS: Basophils % 0.2 % (0.0-0.8); Eosinophils # 0.1 10*3/uL (0.0-0.87); Eosinophils % 0.5 % (0.00-10.9); Hematocrit 33.6 VOL% (35.7-47.0); Hemoglobin 10.9 GM/DL (12.0-16.0); Immature Granulocytes Absolute 0.12 #; Lymphocytes # 3.1 10*3/uL (1.4-4.0); Lymphocytes % 25.1 % (21.3-54.2); Mean Corpuscular HGB Conc 32.4 GM/DL (32-36); Mean Corpuscular Volume 87.7 FL (87-102); Mean Platelet Volume 12.7 FL (9.6-12.0); Monocytes % 6.5 % (1.7-12.7); Neutrophils % 66.7 % (38.7-73.9); Platelet Count 186 T/CUMM (130-400); Red Blood Count 3.83 MC/CUMM (3.8-5.5); Red Cell Distribution Width 13.8 % (9.3-17.3); White Blood Count 12.4 T/CUMM (4-12)
[2018-08-07 22:40] LABS: Alanine Aminotransferase 11 U/L (13-56); Albumin 2.9 G/DL (3.4-5.0); Alkaline Phosphatase 190 U/L (45-117); Aspartate Amino Transferase 13 U/L (0-37); Bilirubin,Total < 0.39 MG/DL (0.2-1.0); Blood Urea Nitrogen 6 MG/DL (7-18); Calcium 8.4 MG/DL (8.5-10.1); Glucose 124 MG/DL (74-106); Osmolality,Calculated 279.3 MOS/KG (273-304); Total Protein 7.1 G/DL (6.4-8.3)
[2018-08-08] MEDS: LACTATED RINGERS 1,000 ML IV SCH ×2 (03:26→03:45)
[2018-08-08] MEDS: BUTORPHANOL 2 MG/ML VIAL IV PRN ×2 (04:05→07:44)
[2018-08-08] MEDS ORDERED: ALUMINUM/MAGNES/SIMETH MAX STR 30 ML UDCUP PO PRN (04:23)
[2018-08-08] MEDS: AMPICILLIN INJ 2,000 MG in SODIUM CHLORIDE 0.9% 100 ML IV SCH ×2 (04:35→10:42)
[2018-08-08] MEDS ORDERED: OXYTOCIN/LR 20 UNIT/1,000 ML BAG IV SCH (08:30)
[2018-08-08] MEDS ORDERED: NALOXONE 0.4 MG/ML VIAL IV PRN (08:39)
[2018-08-08] MEDS ORDERED: FAMOTIDINE 20 MG/2 ML VIAL IV ONE (08:39)
[2018-08-08] MEDS ORDERED: ePHEDrine 50 MG/ML AMP IV PRN (08:39)
[2018-08-08] MEDS ORDERED: LACTATED RINGERS 1,000 ML IV ONE (08:39)
[2018-08-08] MEDS ORDERED: CITRIC ACID/SODIUM CITRATE 30 ML UDCUP PO ONE (08:39)
[2018-08-08] MEDS ORDERED: diphenhydrAMINE 50 MG/1 ML VIAL IV PRN ×2 (08:39)
[2018-08-08] MEDS ORDERED: fentaNYL 2 MCG/ROPIV 0.2% EPID 100 ML EPIDURAL SCH (09:00)
[2018-08-08] MEDS ORDERED: EPINEPHrine 1 MG/ML VIAL ONE (09:08)
[2018-08-08 10:56] LABS: Apearance,Urine CLEAR (Clear); Bilirubin,Urine Negative (Negative); Blood, Urine Negative (Negative); Glucose,Urine (UA) Negative (Negative); Ketones,Urine Negative (Negative); Mucus,Urine Few /LPF (Occasional); Nitrite,Urine Negative (Negative); Protein,Urine Negative; RBC,Urine 1 /HPF (0-4); Squamous Epithelial Cell,Urine Occasional /HPF (0-10); Urine Color Yellow (Yellow); Urine Specific Gravity 1.019 (1.001-1.035); Urine Urobilinogen < 2.0 EU/DL (0.2-1.0); WBC,Urine 1 /HPF (0-6)
[2018-08-08] MEDS ORDERED: miSOPROStol 200 MCG TABLET ONE (13:05)
[2018-08-08] MEDS ORDERED: METHYLERGONOVINE 0.2 MG/1 ML AMP ONE (13:06)
[2018-08-08] MEDS ORDERED: ONDANSETRON 4 MG/2 ML VIAL IV PRN (13:27)
[2018-08-08] MEDS ORDERED: BENZOCAINE 20%/MENTHOL 0.5% SPRAY 56 GM CAN TOP PRN (13:27)
[2018-08-08] MEDS ORDERED: OXYTOCIN/LR 20 UNIT/1,000 ML BAG IV ONE (13:27)
[2018-08-08] MEDS ORDERED: WITCH HAZEL PADS 100/JAR TOP PRN (13:27)
[2018-08-08] MEDS ORDERED: LANOLIN 50% CREAM 0.3 OZ TUBE TOP PRN (13:27)
[2018-08-08] MEDS ORDERED: BISACODYL 10 MG SUPP RECTAL PRN (13:27)
[2018-08-08] MEDS ORDERED: oxyCODONE/ACETAMINOPHEN 5-325 MG TABLET PO PRN (13:27)
[2018-08-08] MEDS ORDERED: HYDROCORTISONE 2.5% RECTAL CREAM 30 GM TUBE TOP PRN (13:27)
[2018-08-08] MEDS ORDERED: ACETAMINOPHEN 325 MG TABLET PO PRN (13:27)
[2018-08-08] MEDS ORDERED: MEASLES/MUMPS/RUBELLA VACCINE 0.5 ML VIAL SUBCUT ONE (14:00)
[2018-08-08] MEDS ORDERED: RHO(D) IMMUNE GLOBULIN 300 MCG SYRINGE IM ONE (14:00)
[2018-08-08] MEDS ORDERED: DIPH/TET/ACEL PERT BOOSTER VACCINE 0.5 ML VIAL IM ONE (14:00)
[2018-08-08] MEDS: IBUPROFEN 800 MG TABLET PO PRN ×2 (16:56→22:26)
[2018-08-08] MEDS: DOCUSATE SODIUM 100 MG CAPSULE PO SCH (22:07)
[2018-08-08] MEDS: oxyCODONE/ACETAMINOPHEN 5-325 MG TABLET PO PRN (23:44)
[2018-08-09] MEDS: IBUPROFEN 800 MG TABLET PO PRN ×4 (03:55→23:32)
[2018-08-09 04:56] LABS: Basophils # 0.1 10*3/uL (0.0-0.2); Basophils % 0.3 % (0.0-0.8); Eosinophils # 0.1 10*3/uL (0.0-0.87); Eosinophils % 0.7 % (0.00-10.9); Hematocrit 30.1 VOL% (35.7-47.0); Hemoglobin 9.7 GM/DL (12.0-16.0); Immature Granulocytes % 1.3 %; Lymphocytes % 26.1 % (21.3-54.2); Mean Corpuscular HGB Conc 32.2 GM/DL (32-36); Mean Corpuscular Volume 89.1 FL (87-102); Mean Platelet Volume 13.2 FL (9.6-12.0); Monocytes % 6.8 % (1.7-12.7); Neutrophils % 64.8 % (38.7-73.9); Platelet Count 168 T/CUMM (130-400); Red Blood Count 3.38 MC/CUMM (3.8-5.5); Red Cell Distribution Width 13.9 % (9.3-17.3); White Blood Count 15.4 T/CUMM (4-12)
[2018-08-09] MEDS: oxyCODONE/ACETAMINOPHEN 5-325 MG TABLET PO PRN ×4 (05:19→23:32)
[2018-08-09] MEDS: DOCUSATE SODIUM 100 MG CAPSULE PO SCH ×2 (09:12→21:00)
[2018-08-10] MEDS: IBUPROFEN 800 MG TABLET PO PRN (05:46)
[2018-08-10] MEDS: oxyCODONE/ACETAMINOPHEN 5-325 MG TABLET PO PRN (05:47)
[2018-08-10 07:35] VITALS: BP 112/64
[2018-08-10] MEDS: DOCUSATE SODIUM 100 MG CAPSULE PO SCH (09:06)
== END 2018-08-10 12:40 | disposition home or self-care (01) | DRG 560 ==
LOC: N.LDOUT 21:11 → N.LD 21:17 → N.OB 08-08 16:29
PROVIDERS: ADMIT Orthopaedic Surgery Pediatric Orthopaedic Surgery; ATTEND Specialist